=== PATIENT | female | born 1955 | race Caucasian/White ===

== ENCOUNTER 2021-11-27 07:58 | Outpatient (CLI) | payer MEDICARE ==
[2021-11-27 22:44] LABS: SARS-CoV-2 PCR by NAA Not Detected (NotDetected)
== END 2021-11-27 07:59 | disposition home or self-care (01) ==
LOC: CSHLAB 07:58
PROVIDERS: ATTEND Internal Medicine Gastroenterology
DX: Z20.822 Contact with and (suspected) exposure to COVID-19 (principal)
CPT/HCPCS: U0003; U0005

== ENCOUNTER 2021-11-27 08:26 | Outpatient (CLI) | payer MEDICARE, OTHER ==
[2021-11-27] MEDS ORDERED: Iopamidol 300 61% 100 ML VIAL FS ONE (09:12)
== END 2021-11-27 08:27 | disposition home or self-care (01) ==
LOC: CSHCT 08:26
PROVIDERS: ATTEND Internal Medicine Gastroenterology
DX: K58.1 Irritable bowel syndrome with constipation (principal); R13.19 Other dysphagia; K76.9 Liver disease, unspecified; J44.9 Chronic obstructive pulmonary disease, unspecified; K76.89 Other specified diseases of liver; Z20.822 Contact with and (suspected) exposure to COVID-19
CPT/HCPCS: 74170; 82565; U0003; U0005

== ENCOUNTER 2021-11-30 09:37 | Outpatient (CLI) | payer MEDICARE, OTHER | END 2021-11-30 09:38 | disposition home or self-care (01) | LOC: CSHRAD 09:37 | PROVIDERS: ATTEND Internal Medicine Gastroenterology | DX: K58.1 Irritable bowel syndrome with constipation (principal); R13.19 Other dysphagia; K76.9 Liver disease, unspecified; J44.9 Chronic obstructive pulmonary disease, unspecified | CPT/HCPCS: 74220 ==

== ENCOUNTER 2023-01-26 17:11 | Emergency (ER) | payer OTHER ==
[~2023-01-26 17:11] MED LIST: Iopamidol 300 61% 100 ML VIAL FS ONE
[2023-01-26] MEDS ORDERED: Morphine 4 MG/ML VIAL ONE ×2 (17:49→20:31)
[2023-01-26 18:06] LABS: #Eosinphils 0.1 10x3/uL (0.0-0.5); #Monocytes 0.5 10x3/uL (0.0-1.1); %Basophils 0.4 % (0.0-2.0); %Eosinophils 2.4 % (0.0-6.0); %Lymphocytes 13.9 % (18.0-47.0); %Monocytes 9.9 % (0.0-10.0); %Neutrophils 73.2 % (40.0-75.0); Hemoglobin 12.4 g/dL (12.0-15.5); Mean Corpuscular HGB CONC 33.2 g/dL (32.0-36.0); Mean Corpuscular Hemoglobin 29.7 pg (27.0-33.0); Mean Corpuscular Volume 89.7 fl (81.6-98.3); Mean Platelet Volume 9.8 fl (7.4-10.4); Platelet Count 201 10x3/uL (150-450); RBC Distribution Width 13.2 % (11.5-14.5); Red Blood Cell (RBC) Count 4.17 10x6/uL (3.90-5.03); White Blood Cell (WBC) Count 5.5 10x3/uL (3.5-10.5)
[2023-01-26 18:23] LABS: ALT (SGPT) 14 U/L (8-55); AST (SGOT) 24 U/L (5-34); Albumin 4.3 g/dL (3.4-4.8); Alkaline Phosphatase 44 U/L (40-110); Anion Gap 13 mmol/L (10-20); BUN (Urea Nitrogen) 5 mg/dL (9.8-20.1); Bilirubin, Total 0.4 mg/dL (0.2-1.2); Calc. Creatinine Clearance 0 mL/min (70-130); Calcium 8.7 mg/dL (7.8-10.44); Carbon Dioxide 23 mmol/L (23-31); Chloride 99 mmol/L (98-107); Estimated GFR 97; Globulin 2.6 g/dL (2.4-3.5); Glucose 92 mg/dL (80-115); Lipase 25 U/L (8-78); Potassium 3.9 mmol/L (3.5-5.1); Protein, Total 6.9 g/dL (5.8-8.1); Sodium 131 mmol/L (136-145)
[2023-01-26 19:01] LABS: Bilirubin Neg (Negative); Blood, Urine Negative (Negative); Clarity Clear (Clear); Glucose, Urine (Dipstick) Normal (Negative); Ketone, Urine Negative (Negative); Leukocyte Negative (Negative); Nitrite Negative (Negative); Protein, Urine (Dipstick) Negative (Neg-Trace); Specific Gravity, Urine 1.005 (1.005-1.030); Urobilinogen Normal mg/dL (Less than 2)
[2023-01-26 19:18] LABS: Bacteria/HPF None Seen HPF (None Seen); CAUTI Indications for Culture Pelvic or flank pain; RBC/HPF 0-3 HPF (0-3); Squamous Epithelial 0-3 HPF (0-3); WBC/HPF 0-3 HPF (0-3)
[2023-01-26 19:19] LABS: Urine Culture Reflex No No
== END 2023-01-26 23:26 | disposition short-term general hospital (02) ==
LOC: CSHERS 17:11
DX: R10.84 Generalized abdominal pain (principal); I10 Essential (primary) hypertension; Z87.891 Personal history of nicotine dependence; J44.9 Chronic obstructive pulmonary disease, unspecified; I48.91 Unspecified atrial fibrillation
CPT/HCPCS: 74177; 80053; 81001; 83605; 83690; 85025; 87040; 87086; 96374; 96376; J2270; Q9967

== ENCOUNTER 2024-05-07 13:33 | Emergency (ER) | payer OTHER ==
[2024-05-07] MEDS ORDERED: Morphine 4 MG/ML VIAL ONE ×2 (14:02→15:46)
[2024-05-07] MEDS ORDERED: Ondansetron PF 4 MG/2 ML Vial ONE (14:03)
[2024-05-07 14:25] LABS: #Basophils 0.01 10x3/uL (0.0-0.2); #Eosinophils 0.07 10x3/uL (0.0-0.5); #Monocytes 0.43 10x3/uL (0.0-1.1); %Basophils 0.2 % (0.0-2.0); %Eosinophils 1.5 % (0.0-6.0); %Monocytes 8.9 % (0.0-10.0); %Neutrophils 72.8 % (40.0-75.0); Hematocrit 33.4 % (34.9-44.5); Mean Corpuscular HGB CONC 29.9 g/dL (32.0-36.0); Mean Corpuscular Hemoglobin 25.9 pg (27.0-33.0); Mean Corpuscular Volume 86.5 fL (81.6-98.3); Mean Platelet Volume 9.8 fL (7.4-10.4); Platelet Count 237 10x3/uL (150-450); RBC Distribution Width 14.8 % (11.5-14.5); Red Blood Cell (RBC) Count 3.86 10x6/uL (3.90-5.03); White Blood Cell (WBC) Count 4.8 10x3/uL (3.5-10.5)
[2024-05-07 14:33] LABS: INR-International Normal Ratio 0.9; Prothrombin Time 10.3 sec (9.5-12.1)
[2024-05-07 14:40] LABS: ALT (SGPT) 10 U/L (8-55); AST (SGOT) 18 U/L (5-34); Albumin 3.7 g/dL (3.4-4.8); Alkaline Phosphatase 69 U/L (40-110); Anion Gap 12 mmol/L (10-20); BUN (Urea Nitrogen) 6 mg/dL (9.8-20.1); Bilirubin, Total 0.3 mg/dL (0.2-1.2); Calc. Creatinine Clearance 0 mL/min (70-130); Calcium 8.8 mg/dL (7.8-10.44); Carbon Dioxide 30 mmol/L (23-31); Chloride 101 mmol/L (98-107); Estimated GFR 97; Globulin 2.5 g/dL (2.4-3.5); Glucose 113 mg/dL (80-115); Lipase 44 U/L (8-78); Potassium 3.7 mmol/L (3.5-5.1); Protein, Total 6.2 g/dL (5.8-8.1); Sodium 139 mmol/L (136-145)
== END 2024-05-07 18:22 ==
LOC: CSHERS 13:33
DX: K56.609 Unspecified intestinal obstruction, unspecified as to partial versus complete obstruction (principal); I10 Essential (primary) hypertension; Z87.891 Personal history of nicotine dependence
CPT/HCPCS: 74177; 80053; 83690; 84145; 85025; 85610; J2272; J2405; 96374; 96375; 96376; Q9967